=== PATIENT | male | born 1955 | race Caucasian/White ===

== ENCOUNTER 2017-05-02 13:39 | Day surgery (SDC) | payer BC ==
[~2017-05-02] VITALS: Ht 180.3 cm; Wt 118.7 kg
[~2017-05-02 13:39] MED LIST: GLYCOPYRROLATE 1 MG/5 ML SYRINGE IV PUSH ONE; LIDOCAINE HCL 1% PF 5 ML SYRINGE OTHER ONE; NEOSTIGMINE 5 MG/5 ML SYRINGE IV PUSH ONE; NS 100 ML (PAB BAG) 100 ML IV ONE; ONDANSETRON HCL 4 MG/2 ML VIAL IV ONE; PROPOFOL 200 MG/20 ML AMP IV ONE; ROCURONIUM INJ 50 MG/5 ML SYRINGE IV PUSH ONE
[2017-05-02 14:55] VITALS: BP 119/82; PULSE 115; RESP 20; TEMP 98.3; O2SAT 94
[2017-05-02] MEDS ORDERED: XARE20TA PO (15:12)
[2017-05-02] MEDS ORDERED: CANA300T PO (15:12)
[2017-05-02] MEDS ORDERED: MULT-65 PO (15:12)
[2017-05-02] MEDS ORDERED: LISI2.5T3 PO (15:12)
[2017-05-02] MEDS ORDERED: OMEGCAP PO (15:12)
[2017-05-02] MEDS ORDERED: INSU1.2I SQ (15:12)
[2017-05-02] MEDS ORDERED: AMIO200T PO (15:12)
[2017-05-02] MEDS ORDERED: FURO40TA PO (15:12)
[2017-05-02] MEDS ORDERED: METF1000 PO (15:12)
[2017-05-02] MEDS ORDERED: CHOL5000 PO (15:12)
[2017-05-02] MEDS ORDERED: METO-426 PO (15:12)
[2017-05-02] MEDS ORDERED: [UNRECOGNIZED DRUG - CODE] (15:12)
[2017-05-02] MEDS ORDERED: ATOR40TA16 PO (15:12)
[2017-05-02] MEDS ORDERED: INSU10IN SQ (15:12)
[2017-05-02] MEDS ORDERED: LORazepam 1 MG TAB SL SCH (15:15)
[2017-05-02] MEDS ORDERED: SODIUM CHLORID 0.9% 500 ML INJ 500 ML IV SCH (15:15)
[2017-05-02] MEDS ORDERED: CHLORHEXIDINE GLUCONATE 2 % 1 PACK (2 CLOTHS) TOPICAL PRN (15:15)
[2017-05-02] MEDS ORDERED: LACTATED RINGER'S 1000 ML IV PRN (15:15)
[2017-05-02] MEDS ORDERED: POVIDONE IODINE 5% (ANTISEPSIS KIT) 4 APPLICATIONS EACH NARE PRN (15:15)
[2017-05-02] MEDS ORDERED: METOPROLOL TARTRATE 25 MG TAB PO PRN (15:15)
[2017-05-02] MEDS ORDERED: SODIUM CHLORID 0.9% 500 ML IV PRN (15:15)
[2017-05-02 15:27] LABS: BASOPHIL # 0.1 TH/MM3 (0-0.2); BASOPHIL % 1.2 % (0.0-2.0); EOSINOPHIL # 0.4 TH/MM3 (0-0.4); HEMOGLOBIN 15.2 GM/DL (13.0-17.0); LYMPH % 23.1 % (9.0-44.0); LYMPHOCYTE # 1.5 TH/MM3 (1.0-4.8); MEAN CELL VOLUME 86.7 FL (80.0-100.0); MEAN CORPUSCULAR HEMOGLOBIN 29.2 PG (27.0-34.0); MEAN CORPUSCULAR HGB CONC 33.7 % (32.0-36.0); MEAN PLATELET VOLUME 8.5 FL (7.0-11.0); MONO % 9.9 % (0.0-8.0); MONOCYTE # 0.7 TH/MM3 (0-0.9); NEUT % 59.8 % (16.0-70.0); PLATELET COUNT 208 TH/MM3 (150-450); RED BLOOD COUNT 5.19 MIL/MM3 (4.50-5.90); RED CELL DISTRIBUTION WIDTH 14.8 % (11.6-17.2); WHITE BLOOD COUNT 6.7 TH/MM3 (4.0-11.0)
[2017-05-02 15:40] LABS: PROTHROMBIN TIME - PATIENT 10.4 SEC (9.8-11.6)
[2017-05-02 16:12] LABS: BICARBONATE 27.9 MEQ/L (21.0-32.0); CALCIUM 9.2 MG/DL (8.5-10.1)
--- NOTE | 2017-05-02 16:48 | CATHPROC ---
Patient Name: EMELIA CUMMINGS Study #: [id number] Initial MD: Avis France Date of : 1955 Study Date: 05/02/2017 Cardiac Catheterization Report 05/02/2017 5:02:16 PM Financial #: [id number] 1 of 8 Patient Name: EMELIA CUMMINGS Study #: [id number] Initial MD: Avis France Date of : 1955 Study Date: 05/02/2017 Entire Case Report Patient Information Patient Name EMELIA CUMMINGS Date of 1955 Age 61 years Financial # [id number] Gender M AlternateID Lab Number 2 Room Number DC10 Height (in) 71.0 Height (cm) 180.3 BSA 2.36 Weight (lbs) 260.7 Weight (kg) 118.5 Patient Address/Phone Number Home Address [facility] Home Phone Number [phone] [id number] Study Information Study Number Admission Scheduled Start Study Start [id number] May 02 2017 1:39PM 05/02/2017 May 02 2017 2:58PM [place] Service Electrophysiology Study Admit Source Facility Department Other [facility] - Retail Advertising Sales Manager Physician and Clinical Staff Initial Avis Rincon Refrigeration Service Technician Celeste Edmond,MOBILE MARKETING MANAGER Other Anesthesia, MARINE SERVICE MANAGER Recorder Ching Craig,KARLA Scrub George Morel,RT(R) Procedures Performed Procedure Location (Site) Vessel Name RF Ablation Isthmus Other 05/02/2017 5:02:16 PM Financial #: [id number] 2 of 8 Patient Name: EMELIA CUMMINGS Study #: [id number] Initial MD: Avis France Date of : 1955 Study Date: 05/02/2017 Equipment Time Administrative Personal Assistant Description Size Mfg Part Number Used/Scraped BIOSENSE JEFFREY CATHETER, CELSIUS DS, 8MM, F [id number] 16:17 FR 7 Used INC. TYPE QUAD *[id number] 15:00 MEDLINE INDUSTRIES PACK, CCL CUSTOM * Used *[id number] 15:00 MEDLINE PACER MORENO, LIMB * 2530 *[id number] Used [id number] 15:00 MARSH MEDICAL BLANKET,WARM AIR CCL * Used *[id number] 957591 15:01 ST. JACQUELIN MEDICAL CATHETER, JSN, QUAD FR 5 Used *[id number] 667232 15:01 [employer] JACQUELIN MEDICAL CATHETER, JSN, QUAD FR 5 Used *[id number] 369303 15:01 ST. JACQUELIN MEDICAL CATHETER, JSN, QUAD FR 5 Used *[id number] 156780 15:01 [employer] JACQUELIN MEDICAL CATHETER, JSN, QUAD FR 5 Used *[id number] 15:00 ST. JACQUELIN MEDICAL ELECTRODE KIT, GINO X SURFACE * Used *[id number] 038099 15:00 ST. JACQUELIN MEDICAL SHEATH, EPS, FR5 FAST CATH FR 5 Used *[id number] 228894 15:01 ST. JACQUELIN MEDICAL SHEATH, EPS, FR5 FAST CATH FR 5 Used *[id number] 119753 15:01 ST. JACQUELIN MEDICAL SHEATH, EPS, FR5 FAST CATH FR 5 Used *[id number] 642206 15:00 ST. JACQUELIN MEDICAL SHEATH, EPS, FR6 FAST CATH FR 6 Used *[id number] 862129 15:01 ST. JACQUELIN MEDICAL SHEATH, EPS, FR8 FAST CATH FR 8 Used *[id number] [facility] PAD, ELECTROSURGICAL 15:00 * [id number] *[id number] Used SURGICAL GROUNDING (BLUE) Insurance Information Insurance Payor Private Health Insurance Third Republican Third Republican Number [facility] History: Allergies Allergy Reaction No Known Drug Allergies History: Risk Factors Hypertension Dyslipidemia Previous OH Yes Yes Yes Diabetes Diabetes Therapy Labs 05/02/2017 5:02:16 PM Financial #: [id number] Patient Name: EMELIA CUMMINGS Study #: [id number] Initial MD: Avis France Date of : 1955 Study Date: 05/03/19 18 Hgb (g/dl) Hct (%) RBC (MIL/MM3) WBC (l/cumm) Platelets (thousands) 11.60-17.00 35.00-51.00 4.00-5.90 4.00-11.00 150.00-450.00 15.0 45 5 6 208 INR (PTT:PT) 0.90-1.10 1 Medication Medication Total Dose (Bolus/Oral) Medication Total Dosage/Unit 1% XYLOCAINE 40 mL Medications (Bolus/Oral) Medication Time Given Dosage/Unit Administered By Reason 1% XYLOCAINE 05/02/2017 4:03:57 PM 20 mL Avis France 20 mL 1% XYLOCAINE given in lab by Avis France in Left Groin via Subcutaneous. 1% XYLOCAINE 05/02/2017 4:10:09 PM 20 mL Avis France 20 mL 1% XYLOCAINE given in lab by Aivs France in Right Groin via Subcutaneous. Medication (Drip) Medication Time Given Dosage/Unit Concentration/Unit Diluent (ml) Solution ISUPREL 05/02/2017 4:25:53 PM 5 mcg/min 1 mg 250 NaCl .9 5 mcg/min ISUPREL given in lab by Avis France via Peripheral IV. Pump/Drip Flow = 75 ml/hr using Na Cl .9 with a concentration of 1 mg in 250 ml. 05/02/2017 5:02:16 PM Financial #: [id number] 4 of 8 Patient Name: EMELIA CUMMINGS Study #: [id number] Initial MD: Avis France Date of : 1955 Study Date: 05/02/2017 Initial Case Assessment Cardiovascular HR Rhythm NIBP Chest Pain 114 AFL 126/86 0 Edema Present Skin color Skin Mild Normal Warm Circulatory - Right Pulses Dorsalis Pedis 1 Scale (0,1,2,3,4,d) Circulatory - Left Pulses Dorsalis Pedis 1 Scale (0,1,2,3,4,d) Circulatory - Lower Extremities Color Lower Right Color Lower Left Normal Normal Neurological State Oriented to time-place- Alert Moves all extremities person Respiration - General Respiration Rate SpO2 (%) (B/min) 20 93 05/02/2017 5:02:16 PM Financial #: [id number] 5 of 8 Patient Name: EMELIA CUMMINGS Study #: [id number] Initial MD: Avis France Date of : 1955 Study Date: 05/02/2017 Final Case Assessment Cardiovascular HR Rhythm NIBP Chest Pain 77 sr 143/83 0 Edema Present Skin color Skin Mild Normal Warm Dry Circulatory - Right Pulses Dorsalis Pedis 1 Scale (0,1,2,3,4,d) Circulatory - Left Pulses Dorsalis Pedis 1 Scale (0,1,2,3,4,d) Circulatory - Lower Extremities Color Lower Right Color Lower Left Normal Normal Neurological State Lethargic Moves all extremities Respiration - General Respiration Rate SpO2 (%) O2 (lpm) (B/min) 16 93 6 Chronological Log Time Study Chronological Log 15:24:23 Patient arrived via Bed. 15:24:24 Patient Name, D.O.B, / Armband Verified By R.N. 15:24:25 Consent signed by the physician and the patient and verified by the Retail Advertising Sales Manager staff. 15:24:26 Pre-op and post- op instructions given; patient acknowledges understanding of instructions. 15:24:27 Verbal Stimulation=2 Physical Stimulation=2 Airway=2 Respiration=2 TOTAL=8. (0=absent, 1=li mited, 2=present) 15:24:29 Anesthesia at bedside. Assumes care of patient. 15:24:39 Patient has been NPO for More than 6Hrs. 15:24:40 Skin Breakdown- bilateral groins reddened and discolored brown. 15:24:42 Patient Warmer Placed on the Table. 05/02/2017 5:02:16 PM Financial #: [id number] 6 of 8 Patient Name: EMELIA CUMMINGS Study #: [id number] Initial MD: Avis France Date of : 1955 Study Date: 05/02/2017 15:24:44 Disposable Defibrillator Pads Placed On Patient. 15:24:46 A # 20 IV was noted in the Antecubital (right). Grade = 0 0.9ns kvo 15:24:48 A # 20 IV was noted in the Antecubital (left). Grade = 0 0.9ns kvo 15:25:12 History and physical on the chart or being dictated. Assessment: Initial Case, ON=185 BPM, Rhythm=AFL, FQTG=723/86 mmhg, Chest Pain=0, Edema=Mild, Color=Normal, Skin = Warm Right Pulses: Kj Ped=1 Left Pulses: Kj Ped=1 15:31:17 Lower Right Extremities: Color=Normal Lower Left Extremities: Color=Normal Neurological: State=Alert, Ox3, EVANS Respiration: Resp=20 B/min, SpO2=93 % 15:45:57 Table restraints applied according to hospital policy 15:46:07 Bilateral groins prepped with 2% chlorhexidine, and draped after a 3 minute waiting time. 15:49:38 Reference ECG taken 15:51:46 Anesthesia present for intubation 15:55:16 PACU Lozano notified of pt 15:57:50 MD arrived. Time Out. Correct patient, procedure, procedure equipment, site and side verified with physicia n present. Time 16:03:15 concurred by MD, individual staff and MARINE SERVICE MANAGER. Time Out #2 - Consents verified, patient in correct position, all results are labled and displa yed, safety precautions 16:03:38 taken, antibiotics administered. Time out concurred by MD, individual staff and MARINE SERVICE MANAGER in procedu re 16:03:53 Case Start 16:03:57 20 mL 1% XYLOCAINE given in lab by Avis France in Left Groin via Subcutaneous. 16:04:34 Vascular access was obtained in the Fem Vein (left). 16:04:38 Vascular access was obtained in the Fem Vein (left). 16:04:39 Vascular access was obtained in the Fem Vein (left). 16:04:44 A SHEATH, EPS, FR5 FAST CATH FR 5 was advanced into the Fem Vein (left) using the Modified Seldinger technique. 16:05:04 A SHEATH, EPS, FR5 FAST CATH FR 5 was advanced into the Fem Vein (left) using the Modified Seldinger technique. 16:05:34 A SHEATH, EPS, FR5 FAST CATH FR 5 was advanced into the Fem Vein (left) using the Modified Seldinger technique. 16:10:09 20 mL 1% XYLOCAINE given in lab by Avis France in Right Groin via Subcutaneous. 16:10:57 Vascular access was obtained in the Fem Vein (right). 16:11:01 Vascular access was obtained in the Fem Vein (right). 16:11:55 A SHEATH, EPS, FR6 FAST CATH FR 6 was advanced into the Fem Vein (right) using the Modified Seldinger technique. 16:12:13 A SHEATH, EPS, FR8 FAST CATH FR 8 was advanced into the Fem Vein (right) using the Modified Seldinger technique. A CATHETER, JSN, QUAD FR 5 was advanced vis Fem Vein (left) and placed in the CS. Placement was visually 16:14:39 confirmed under fluoroscopy. A CATHETER, JSN, QUAD FR 5 was advanced vis Fem Vein (left) and placed in the HIS. Placement wa s visually 16:14:50 confirmed under fluoroscopy. A CATHETER, JSN, QUAD FR 5 was advanced vis Fem Vein (left) and placed in the HRA. Placement wa s visually 16:14:54 confirmed under fluoroscopy. A CATHETER, JSN, QUAD FR 5 was advanced vis Fem Vein (right) and placed in the RVA. Placement w as visually 16:15:06 confirmed under fluoroscopy. 05/02/2017 5:02:16 PM Financial #: [id number] 7 of 8 Patient Name: EMELIA CUMMINGS Study #: [id number] Initial MD: Avis France Date of : 1955 Study Date: 05/02/2017 A CATHETER, CELSIUS DS, 8MM, F TYPE QUAD FR 7 was advanced vis Fem Vein (right) and placed in the Isthmus. 16:17:59 Placement was visually confirmed under fluoroscopy. 16:19:16 RF Ablation of the Isthmus with a CATHETER, CELSIUS DS, 8MM, F TYPE QUAD FR 7. 16:23:42 EPS in progress. 16:25:20 Monitor SR 5 mcg/min ISUPREL given in lab by Avis France via Peripheral IV. Pump/Drip Flow = 75 ml/hr u sing NaCl .9 with a 16:25:53 concentration of 1 mg in 250 ml. 16:35:48 Isuprel off 16:38:53 All catheter(s) removed without difficulty 16:40:17 Sheath(s) left in place, secured, 0.9ns kvoconnectedwill be removed in Holding Area 16:42:39 PACU called. Spoke to Blake. 16:45:58 Bedside Report will be given. 16:46:00 Defibrillator and ground pads removed. Skin intact. Assessment: Final Case, HR=77 BPM, Rhythm=sr, FQIM=536/83 mmhg, Chest Pain=0, Edema=Mild, [place] r=Normal, Skin = Warm, Dry Right Pulses: Kj Ped=1 Left Pulses: Kj Ped=1 16:46:15 Lower Right Extremities: Color=Normal Lower Left Extremities: Color=Normal Neurological: State=Lethargic, EVANS Respiration: Resp=16 B/min, SpO2=93 %, O2=6 lpm 16:46:44 Case End 16:46:45 No case complications noted. 16:46:46 Cine recording checked. 16:57:12 Patient moved to stretcher End Study - Contrast Media Used In Study Contrast Total Opened (mL) Total Used (mL) Total Wasted (mL) Unspecified 0 0 0 End Study - Radiation Exposure Fluoro Time (minutes) 3.7 End Study - Patient Disposition Complications Transferred To Interventional Outcome No Telemetry Bed successful 05/02/2017 5:02:16 PM Financial #: [id number]
[2017-05-02] MEDS ORDERED: DO NOT ADM ANY ANTICOAGULANT DRUGS PRN (17:05)
[2017-05-02 20:00] VITALS: BP 110/60; PULSE 66; RESP 18; TEMP 97.9; O2SAT 100
[2017-05-02] MEDS ORDERED: oxyCODONE/ACETAMINOPHEN 5 MG/325 MG TAB PO PRN ×2 (20:30)
[2017-05-02] MEDS ORDERED: ONDANSETRON HCL 4 MG/2 ML VIAL IV PUSH PRN (20:30)
[2017-05-02] MEDS ORDERED: ATORVASTATIN 40 MG TAB PO SCH (21:00)
[2017-05-02] MEDS ORDERED: INSULIN LISPRO 1 UNIT SQ SCH (21:00)
[2017-05-02] MEDS ORDERED: RIVAROXABAN 20 MG TAB PO SCH (21:00)
[2017-05-02] MEDS ORDERED: PILL SPLITTER OTHER PRN (21:15)
[2017-05-02] MEDS: metFORMIN HCL 500 MG TAB PO SCH (21:30)
[2017-05-02] MEDS ORDERED: DEXTROSE 50% IN WATER 50 ML VIAL(D50) IV PUSH PRN (22:00)
[2017-05-02] MEDS ORDERED: GLUCAGON 1 MG/ML VIAL OTHER PRN (22:00)
[2017-05-02] MEDS ORDERED: INSULIN DETEMIR 100 UNITS/ML VIAL SQ SCH (22:00)
[2017-05-02 23:00] VITALS: BP 126/72; PULSE 68; RESP 16; TEMP 98.2; O2SAT 95
[2017-05-02] MEDS: AMIODARONE 200 MG TAB PO SCH (23:04)
[2017-05-02] MEDS: LOW DOSE INSULIN NOVOLOG SUPPLEMENTAL SCALE SQ SCH (23:05)
[2017-05-03] VITALS (20 sets, daily range): BP systolic 112–141; BP diastolic 62–77; PULSE 54–74; RESP 16–18; TEMP 97.8–98; O2SAT 94–98
[2017-05-03 06:45] LABS: INTERNATIONAL NORMALIZED RATIO 1.1 RATIO; PROTHROMBIN TIME - PATIENT 11.6 SEC (9.8-11.6)
[2017-05-03] MEDS: LOW DOSE INSULIN NOVOLOG SUPPLEMENTAL SCALE SQ SCH ×2 (08:00→12:00)
[2017-05-03] MEDS ORDERED: CANAGLIFLOZIN PO SCH (09:00)
[2017-05-03] MEDS ORDERED: FUROSEMIDE 40 MG TAB PO SCH (09:00)
[2017-05-03] MEDS ORDERED: CHOLECALCIFEROL (VIT D3) 5000 UNIT CAP PO SCH (09:00)
[2017-05-03] MEDS ORDERED: [UNRECOGNIZED DRUG - OTHER] PO SCH (09:00)
[2017-05-03] MEDS ORDERED: NON-FORMULARY DRUG (Fish Oil-Cholecalciferol (Omega-3 Fish Oil/Vitamin) 1 CAP) PO SCH (09:00)
[2017-05-03] MEDS ORDERED: LISINOPRIL 5 MG TAB PO SCH (09:00)
[2017-05-03] MEDS: metFORMIN HCL 500 MG TAB PO SCH (09:00)
[2017-05-03] MEDS ORDERED: MULTIVITAMIN TAB PO SCH (09:00)
[2017-05-03] MEDS: AMIODARONE 200 MG TAB PO SCH (10:39)
--- NOTE | 2017-05-03 13:55 | EKG ---
Date Performed: 05/02/2017 Time Performed: 15:07:16 PTAGE: 61 years EKG: SLOW ATRIAL FLUTTER WITH 2:1 CONDUCTION DIFFUSE T-WAVE ABNORMALITIES SUGGESTIVE OF POSSIBLE ISCHEMIA INFERIOR INFARCT, AGE UNDETERMINED Abnormal ECG NO PREVIOUS TRACING DOCTOR: Harmeet Tafoya Interpretating Date/Time 05/03/2017 13:54:12
--- NOTE | 2017-05-03 13:56 | EKG ---
Date Performed: 05/02/2017 Time Performed: 21:34:14 PTAGE: 61 years EKG: Sinus rhythm Low limb lead voltage Borderline ECG Compared to PREVIOUS TRACING , mild prolonged QT interval, no significant change. PREVIOUS TRACIN 05/02/2017 17.50 DOCTOR: Harmeet Tafoya Interpretating Date/Time 05/03/2017 13:55:54
--- NOTE | 2017-05-03 13:56 | EKG ---
Date Performed: 05/02/2017 Time Performed: 17:50:25 PTAGE: 61 years EKG: SINUS BRADYCARDIA PROLONGED QT INTERVAL ABNORMAL ECG Compared to PREVIOUS TRACING , the patient is no longer in atrial flutter. The precvious T-wave abnor mality has resolved. There is no longer evidence of prior infarct. PREVIOUS TRACIN05/02/2017 15.07 DOCTOR: Harmeet Tafoya Interpretating Date/Time 05/03/2017 13:55:10
--- NOTE | 2017-05-03 14:36 | HHI.PR ---
Subjective Remarks Feeling better Objective Vital Signs Date Time Temp Pulse Resp B/P (MAP) Pulse Ox O2 Delivery O2 Flow Rate FiO2 05/03/17 12:05 98.0 65 16 116/68 (84) 98 05/03/17 07:15 97.8 60 18 141/77 (98) 05/03/17 06:00 54 05/03/17 05:00 63 05/03/17 04:00 61 05/03/17 03:00 98.0 61 16 112/62 (79) 94 05/03/17 03:00 62 05/03/17 02:00 60 05/03/17 01:00 62 05/03/17 00:00 74 05/02/17 23:00 68 05/02/17 23:00 98.2 68 16 126/72 (90) 95 05/02/17 21:15 69 16 105/57 (73) 95 Nasal Cannula 2 05/02/17 21:00 65 16 93/55 (68) 95 Nasal Cannula 2 05/02/17 20:30 66 14 108/55 (72) 98 Nasal Cannula 2 05/02/17 20:00 97.9 66 18 110/60 (77) 100 05/02/17 19:30 61 14 120/76 (91) 98 Nasal Cannula 2 05/02/17 19:15 62 14 117/70 (86) 97 Nasal Cannula 2 05/02/17 19:00 62 14 111/69 (83) 97 Nasal Cannula 2 05/02/17 18:45 63 14 113/67 (82) 97 Nasal Cannula 2 05/02/17 18:30 62 14 108/62 (77) 96 Nasal Cannula 2 05/02/17 18:15 62 14 110/64 (79) 96 Nasal Cannula 2 05/02/17 18:00 59 14 107/66 (80) 97 Nasal Cannula 2 05/02/17 17:45 60 14 114/69 (84) 97 Nasal Cannula 2 05/02/17 17:30 59 14 109/64 (79) 96 Nasal Cannula 2 05/02/17 17:15 59 14 108/65 (79) 94 Nasal Cannula 2 05/02/17 17:03 97.6 61 14 110/65 (80) 93 Nasal Cannula 2 05/02/17 14:55 98.3 115 20 119/82 (94) 94 I/O 05/02/17 05/02/17 05/02/17 05/03/17 05/03/17 05/03/17 07:00 15:00 23:00 07:00 15:00 23:00 Intake Total 360 ml 240 ml Output Total 1100 ml Balance 360 ml -860 ml Intake Oral 360 ml 240 ml Output Urine Total 1100 ml Result Diagram: 05/02/17 1430 05/02/17 1430 Imaging Alert, fully oriented Lungs: ventilated Heart: S1, S2 regular, no gallop Abdomen: soft, no mass Ext: no edema Current Medications Medications (Trade) Dose Ordered Sig/Judie Route Start Time Stop Time Status Last Admin Lactated Ringer's 1,000 ml @ 30 mls/hr Q24H PRN IV 05/02/17 15:15 05/05/17 15:14 Sodium Chloride 500 ml @ 30 mls/hr [id number] PRN IV 05/02/17 15:15 05/05/17 15:14 (Lopressor) 25 mg MARKETING AUTOMATION ANALYST PRN PO 05/02/17 15:15 05/05/17 15:14 (Betadine 5% Antisepsis Kit) 1 applic MARKETING AUTOMATION ANALYST PRN EACH NARE 05/02/17 15:15 05/05/17 15:14 (Chlorhexidine 2% Cloth) 3 pack MARKETING AUTOMATION ANALYST PRN TOPICAL 05/02/17 15:15 05/05/17 15:14 Sodium Chloride 500 ml @ 30 mls/hr [id number] IV 05/02/17 15:15 (Ativan) 1 mg MARKETING AUTOMATION ANALYST SL 05/02/17 15:15 05/05/17 15:14 Miscellaneous Information ALL NURSING DEPARTME... UNSCH PRN .XX 05/02/17 17:05 05/03/17 17:04 (Percocet 5-325 Mg) 1 tab Q4H PRN PO 05/02/17 20:30 (Percocet 5-325 Mg) 2 tab Q4H PRN PO 05/02/17 20:30 (Zofran Inj) 4 mg Q4H PRN IV PUSH 05/02/17 20:30 (Cordarone) 200 mg BID PO 05/02/17 21:00 05/03/17 10:39 (Lipitor) 40 mg HS PO 3/28/18 21:00 05/02/17 23:04 (Vitamin D3) 5,000 units DAILY PO 05/03/17 09:00 05/03/17 10:39 (Lasix) 40 mg DAILY PO 05/03/17 09:00 05/03/17 10:38 (Glucophage) 1,000 mg BIDPC PO 05/02/17 20:45 (Xarelto) 20 mg DAILY@1800 PO 05/02/17 21:00 05/02/17 23:04 Patient Own Medication PT OWN MED: INVOKANA (CANAGLIFLOZ... DAILY PO 05/03/17 09:00 Future Hold (Levemir Inj) 66 units HS SQ 05/02/17 22:00 05/02/17 23:05 (Prinivil) 2.5 mg DAILY PO 05/03/17 09:00 05/03/17 10:42 (Theragran) 1 tab DAILY PO 05/03/17 09:00 05/03/17 10:39 (Pill Splitter) 1 ea UNSCH PRN OTHER 05/02/17 21:15 (D50w (Vial) Inj) 50 ml UNSCH PRN IV PUSH 05/02/17 22:00 (Glucagon Inj) 1 mg UNSCH PRN OTHER 05/02/17 22:00 (NovoLOG SUPPLEMENTAL SCALE) 1 ACHS SLIDING SCALE SQ 05/02/17 22:00 05/03/17 12:00 Assessment and Plan Problem List: (1) Palpitations ICD Codes: R00.2 - Palpitations Plan: None reported since ablation (2) Shortness of breath ICD Codes: R06.02 - Shortness of breath Plan: Significantly improve (3) Atrial flutter ICD Codes: I48.92 - Unspecified atrial flutter Plan: SP ablation doing well Feeling better Will be DH Follow up as scheduled Avis France MD May 03, 2017 14:36
--- NOTE | 2017-05-03 15:08 | MA ---
cc: Avis France MD DATE: 05/02/2017 Electrophysiology radiofrequency ablation of atrial flutter, repeat electrophysiology study on Isuprel infusion. Mr. Rucker is a 61-year-old gentleman with atrial flutter, previous hospitalization, very symptomatic, referred for electrophysiology study and ablation. The risks, the nature and the benefits of the procedure were clearly stated to him. Risks include pneumothorax, cardiac perforation, stroke, need for open heart surgery and even . The patient and his son agreed to proceed. PROCEDURE: After written informed consent was obtained, the patient was brought to the EP lab where he was prepped and draped in the usual sterile fashion. Conscious sedation was initiated and maintained throughout the procedure by the anesthesiologist. Once sedation verified, the right and left inguinal area was anesthetized with 2% Xylocaine. Using modified Seldinger technique, the left femoral vein was cannulated on 3 occasions. Three guidewires advanced. Over the wire, 3 and 5 Qatari Hemaquet advanced. Then, the right femoral vein was cannulated on 2 occasions. Two guidewires were advanced over the wire. A 6 and an 8 Qatari Hemaquet were advanced. Then, under fluoroscopic guidance through the 5 and 6 Qatari Hemaquet, 4 and 5 Qatari Portillo curved quadripolar electrophysiology catheters were positioned around this His, upper right atrium, coronary sinus and right ventricular apex. Basic intervals were measured. The patient was in atrial flutter. Flutter cycle length was around 245 milliseconds. Then, through the 8 Qatari Hemaquet, a Cordis-Edwards F-curve 8 mm mapping and radiofrequency ablation catheter was advanced. Using [employer] mapping system, a 3-dimensional configuration of the right atrium was obtained. Then, the catheter was critical isthmus. Radiofrequency energy was delivered. During ablation, the patient converted to sinus rhythm. Further burn was delivered in the area. Then, atrial pacing protocol was performed. No tachyarrhythmia was induced. Pacing from the coronary sinus, no tachyarrhythmia was induced. Isuprel infusion was initiated at 10 mcg. No tachyarrhythmia was induced. Post-Isuprel, no tachyarrhythmia was induced. At that point, the procedure was complete. All catheters were removed. The patient is going to be transferred to the recovery room. No STD but the patient tolerated procedure. Blood loss minimal. 1. Electrocardiogram: At baseline, the patient was in atrial flutter. Postprocedure, the patient is in sinus rhythm. 2. Basic interval: Base cycle length was around 530 milliseconds. Post-ablation, it was 900 milliseconds. 3. Tachyarrhythmia: Atrial flutter was mapped and ablated. Ablation was successful. CONCLUSION: Successful electrophysiology study, mapping and radiofrequency ablation of atrial flutter. RECOMMENDATIONS: Patient is going to be transferred to the recovery room. He will be observed. When stable, can be discharged home. MD KENYETTA Sarah/NERISSA , 02:33 PM , 03:08 PM
== END 2017-05-03 18:09 | disposition home or self-care (01) ==
LOC: HDOC 13:39 → HDIC 13:39 → HCIS 21:33 → HDOC 05-03 18:09
PROVIDERS: ATTEND Internal Medicine Interventional Cardiology
DX: I48.92 Unspecified atrial flutter (principal); I10 Essential (primary) hypertension; E11.9 Type 2 diabetes mellitus without complications; Z79.84 Long term (current) use of oral hypoglycemic drugs
CPT/HCPCS: 00537; 80048; 82948; 85025; 85610; 85730; 86850; 86900; 86901; 93005; 93613; 93623; 93653; C1730; C1732; C2630; J1815; J3010; J2405; J2710